=== PATIENT | female | born 1940 | race Caucasian/White ===

== ENCOUNTER → 2018-11-22 | Outpatient (CLI) | payer MEDICARE ==
[~2018-11-22] MED LIST: AEC81 PO; AMLO10TA7 PO; ANAG.5 PO; ATOR40TA71 PO; BRIM5DRO OU; CARB15DR OU; CARV12.511 PO; CLOP75TA32 PO; CYCL30DR; ESZO1TAB13 PO; HYPR10DR OU; LATA2.5D2 OU; LEVO50TA11 PO; SERT100T12 PO
== END | disposition home or self-care (01) ==
LOC: RAH 10:40
PROVIDERS: ATTEND Internal Medicine
DX: J11.1 Influenza due to unidentified influenza virus with other respiratory manifestations (principal); M47.815 Spondylosis without myelopathy or radiculopathy, thoracolumbar region; M85.88 Other specified disorders of bone density and structure, other site
CPT/HCPCS: 71046

== ENCOUNTER → 2019-01-20 | Outpatient (CLI) | payer MEDICARE | END | disposition home or self-care (01) | LOC: SHCH 08:25 | PROVIDERS: ATTEND Internal Medicine Cardiovascular Disease | DX: I08.0 Rheumatic disorders of both mitral and aortic valves (principal); I25.10 Atherosclerotic heart disease of native coronary artery without angina pectoris | CPT/HCPCS: 93306 ==

== ENCOUNTER 2020-05-06 21:03 | Inpatient (IN) | payer MEDICARE ==
[2020-05-06] MEDS ORDERED: LABETALOL 20 MG/4 ML DISP.SYRIN IV ONE (21:28)
[2020-05-06 21:44] LABS: BASOPHILS % (AUTO) 0.2 % (0.0-5.0); HEMATOCRIT 36.3 % (36-48); LYMPHOCYTES % (AUTO) 2.9 % (21.0-51.0); MEAN CORPUSCULAR HEMOGLOBIN 35.5 pg (27.0-33.0); MEAN CORPUSCULAR HGB CONC 36.6 g/dL (32.0-36.0); MEAN CORPUSCULAR VOLUME 96.8 fL (79-99); MONOCYTES % (AUTO) 3.6 % (3.0-13.0); NEUTROPHILS % (AUTO) 92.8 % (40.0-77.0); PLATELET COUNT (AUTO) 302 K/uL (130-400); RED BLOOD CELL COUNT(AUTO) 3.75 MIL/uL (4.00-5.50); RED CELL DISTRIBUTION WIDTH 14.8 % (11.0-15.5); WHITE BLOOD COUNT (AUTO) 13.3 K/uL (4.8-10.8)
[2020-05-06 21:57] LABS: INR 1.06 (0.85-1.15); PARTIAL THROMBOPLASTIN TIME 25.9 SEC (26.3-35.5); PROTHROMBIN TIME 11.4 SEC (9.6-11.6)
[2020-05-06 21:58] LABS: ALBUMIN 4.3 g/dL (3.5-5.0); BILIRUBIN,TOTAL 1.5 mg/dL (0.2-1.0); CREATININE 0.7 mg/dL (0.5-1.5)
[2020-05-06 22:05] LABS: POTASSIUM 2.8 mmol/L (3.5-5.1)
[2020-05-06] MEDS ORDERED: POTASSIUM BICARB/CIT AC 25 MEQ TABLET.EFF ONE (22:39)
[2020-05-06] MEDS ORDERED: IOHEXOL-350 75 ML VIAL IV ONE (23:11)
[2020-05-06] MEDS ORDERED: ONDANSETRON HCL 4 MG/2 ML VIAL ONE (23:40)
[2020-05-06 23:41] LABS: APPEARANCE,URINE Clear (CLEAR); BILIRUBIN,URINE Negative (NEGATIVE); COLOR,URINE Yellow (YELLOW); GLUCOSE, URINE (UA) 250 mg/dL (NEGATIVE); KETONES,URINE Trace mg/dL (NEGATIVE); LEUKOCYTE ESTERASE ,URINE Negative (NEGATIVE); NITRATE,URINE Negative (NEGATIVE); OCCULT BLOOD,URINE Small (NEGATIVE); PH,URINE >=9.0 (5.0-8.0); PROTEIN,URINE POS 1+ mg/dL (NEGATIVE); UROBILINOGEN,URINE 0.2 mg/dL (0.2-1.0)
[2020-05-06 23:48] LABS: AMPHET/METH SCREEN,URINE NEGATIVE (NEGATIVE); BARBITURATE SCREEN, URINE NEGATIVE (NEGATIVE); BENZODIAZEPINES SCREEN,URINE NEGATIVE (NEGATIVE); CANNABINOID SCREEN,URINE NEGATIVE (NEGATIVE); COCAINE SCREEN,URINE NEGATIVE (NEGATIVE); OPIATE SCREEN,URINE NEGATIVE (NEGATIVE); PHENCYCLIDINE SCREEN,URINE NEGATIVE (NEGATIVE)
[2020-05-06] MEDS ORDERED: SODIUM CHLORIDE 0.9% 1000ML 1,000 ML IV SCH (23:48)
[2020-05-06 23:52] LABS: BACTERIA,URINE Moderate /HPF (None Seen); MUCUS,URINE Few LPF (None Seen); RBC,URINE 0-1 /HPF (0-1); SQUAMOUS EPITHELIAL CELL,UR Rare /HPF (0-2)
[2020-05-07] VITALS (16 sets, daily range): BP systolic 118–147; BP diastolic 59–82
[2020-05-07] MEDS ORDERED: LACTULOSE 20 GM/30 ML UDCUP PO PRN
[2020-05-07] MEDS ORDERED: MAG HYDROX/AL HYDROX/SIMETH ES 30 ML SUSP UDCUP PO PRN
[2020-05-07] MEDS ORDERED: MAG HYDROX/AL HYDROX/SIMETH 30 ML, LIDOCAINE HCL 2% VISCOUS 30 ML, DIPHENHYDRAMINE HCL ... PO PRN ×3
[2020-05-07] MEDS ORDERED: DiphenhydrAMINE HCL 50 MG/ML VIAL IV PRN
[2020-05-07] MEDS ORDERED: LIDOCAINE HCL 2% VISCOUS 30 ML, MAG HYDROX/AL HYDROX/SIMETH 30 ML, BELLADONNA-PHENOBARB... PO PRN ×3
[2020-05-07] MEDS ORDERED: DIPHENHYDRAMINE HCL 25 MG CAPSULE PO PRN
[2020-05-07] MEDS ORDERED: NITROGLYCERIN 0.4 MG SL TAB SL PRN
[2020-05-07] MEDS ORDERED: MORPHINE SULFATE 4 MG/1ML SYG IV PRN
[2020-05-07] MEDS ORDERED: MORPHINE SULFATE 2 MG/ML 1ML SYG IV PRN
[2020-05-07] MEDS ORDERED: ZOLPIDEM TARTRATE 5 MG TAB PO PRN
[2020-05-07] MEDS ORDERED: ONDANSETRON HCL 4 MG/2 ML VIAL IV PRN
[2020-05-07] MEDS ORDERED: ACETAMINOPHEN 325 MG TAB PO PRN ×2
[2020-05-07] MEDS ORDERED: GUAIFENESIN-DM 200/20 MG 10 ML PO PRN
[2020-05-07] MEDS ORDERED: NICARDIPINE HCL 25 MG/10 ML ML IV ONE (02:13)
[2020-05-07] MEDS: NICARDIPINE HCL 25 MG in SODIUM CHLORIDE 0.9% 240 ML IV SCH ×2 (05:51→07:25)
[2020-05-07 06:59] LABS: CREATINE KINASE, TOTAL 224 U/L (21-232); MYOGLOBIN 129 ng/mL (10-92)
[2020-05-07 07:01] LABS: BASOPHILS % (AUTO) 0.1 % (0.0-5.0); HEMATOCRIT 34.7 % (36-48); LYMPHOCYTES % (AUTO) 3.1 % (21.0-51.0); MEAN CORPUSCULAR HEMOGLOBIN 35.8 pg (27.0-33.0); MEAN CORPUSCULAR HGB CONC 36.9 g/dL (32.0-36.0); MEAN CORPUSCULAR VOLUME 96.9 fL (79-99); MONOCYTES % (AUTO) 6.1 % (3.0-13.0); NEUTROPHILS % (AUTO) 90.3 % (40.0-77.0); PLATELET COUNT (AUTO) 283 K/uL (130-400); RED BLOOD CELL COUNT(AUTO) 3.58 MIL/uL (4.00-5.50); WHITE BLOOD COUNT (AUTO) 10.7 K/uL (4.8-10.8)
[2020-05-07] MEDS ORDERED: HYDRALAZINE HCL 20 MG/ML VIAL IV PRN (07:30)
[2020-05-07 07:31] LABS: ALBUMIN 3.5 g/dL (3.5-5.0); BILIRUBIN,TOTAL 1.2 mg/dL (0.2-1.0); CREATININE 0.9 mg/dL (0.5-1.5)
[2020-05-07 07:32] LABS: HEMOGLOBIN A1C 5.4 % (4.0-6.0)
[2020-05-07 07:45] LABS: POTASSIUM 2.9 mmol/L (3.5-5.1)
[2020-05-07 08:03] LABS: CREATINE KINASE, TOTAL 259 U/L (21-232); MYOGLOBIN 206 ng/mL (10-92); TROPONIN I < 0.04 ng/mL (0.00-0.06)
[2020-05-07] MEDS: ENOXAPARIN SODIUM 40 MG/0.4 ML SYRINGE SQ SCH (08:21)
[2020-05-07] MEDS: ASPIRIN 81 MG EC TAB PO SCH (08:21)
[2020-05-07] MEDS: FAMOTIDINE/PF 20 MG/2 ML VIAL IV SCH ×2 (08:21→20:12)
[2020-05-07] MEDS: POTASSIUM CHLORIDE 20MEQ/100ML 100 ML IV PRN ×3 (08:40→17:43)
[2020-05-07] MEDS: LIDOCAINE HCL-MPF 1% 2ML VIAL IV PRN ×2 (08:40→10:17)
[2020-05-07] MEDS ORDERED: MAGNESIUM 2GM PREMIX 50ML 50 ML IV PRN (09:15)
[2020-05-07 09:48] LABS: AMMONIA 17 umol/L (11-32); CHOLESTEROL 123 mg/dL (<200); HDL CHOLESTEROL 91 mg/dL (35-85); LDL DIRECT 49 mg/dL (0-99); TRIGLYCERIDES 35 mg/dL (30-200)
--- NOTE | 2020-05-07 10:10 | NUR ---
Dr Merritt at bedside, new recommendations given, okay to downgrade to PCCU
--- NOTE | 2020-05-07 10:10 | NUR ---
Per MEDINA John to hold skilled Physical Therapy Evaluation due to pending MRI. Addendum: 05/07/20 at 1011 by GERALD SOLIS PT PT Amended: Links added.
--- NOTE | 2020-05-07 11:00 | NUR ---
DYSPHAGIA EVDEBBIE COMPLETED. -S/S OF ASPIRATION. RECOMMEND REGULAR TEXTURE, THIN LIQUID DIET; PILLS WHOLE WITH LIQUIDS. Addendum: 05/07/20 at 1520 by CHAU TELLES, [facility] Amended: Links added.
--- NOTE | 2020-05-07 11:30 | NUR ---
COGNITIVE EVAL COMPLETE. COGNITIVE-LINGUISTIC ABILITIES WITHIN FUNCTIONAL LIMITS. EVALUATION: Pt AAOX3. Pt REQUESTS WANTS AND NEEDS INDEPENDENTLY. Pt INTELLIGIBLE AT 100% ACCURACY TO THE UNFAMILIAR LISTENER. Pt COMMUNICATING AT CONVERSATIONAL LEVEL WITH NO DEFICITS IDENTIFIED AT THIS TIME. Pt COMPLETED COGNITIVE-LINGUISTIC EVALUATION TARGETING: ORIENTATION, ATTENTION/CONCENTRATION, MEMORY (IMMEDIATE, SHORT-TERM AND LONG-TERM), PROBLEM SOLVING, LOGIC/REASONING/INFERENCE, THOUGHT ORGANIZATION, FUNCTIONAL MATH AND TELLING TIME. Pt ABLE TO COMPLETE TASKS WITH CORRECT AND TIMELY ANSWERS TO ALL SECTIONS. G-CODES SPOKEN LANGUAGE EXPRESSION: [id number] Addendum: 05/07/20 at 1524 by CHAU TELLES [facility] Amended: Links added.
--- NOTE | 2020-05-07 11:45 | NUR ---
Report given to MEDINA Locke, transferred to room [id number] via bed.
[2020-05-07 15:15] LABS: CREATININE 0.9 mg/dL (0.5-1.5); POTASSIUM 3.5 mmol/L (3.5-5.1); URIC ACID 1.2 mg/dL (2.6-7.2)
--- NOTE | 2020-05-07 16:39 | NUR ---
DC PLAN PATIENT LIVES ALONE. INDEPENDENT ABLE TO PERFORM ADL'S. PATIENT HAS NO SERVICES OR DME'S. FEELS SAFE TO RETURN HOME VIA PRIVATE VEHICLE. PHARM[facility]Y IS [facility] IN [place]. Addendum: 05/07/20 at 1641 by ISIDORO RODGERS RN CM Amended: Links added.
[2020-05-07 17:31] LABS: CREATININE 0.9 mg/dL (0.5-1.5); POTASSIUM 3.2 mmol/L (3.5-5.1)
[2020-05-07 17:34] LABS: TROPONIN I 0.28 ng/mL (0.00-0.06)
[2020-05-08 04:00] VITALS: BP 136/75
[2020-05-08 05:30] LABS: BASOPHILS % (AUTO) 0.5 % (0.0-5.0); EOSINOPHILS % (AUTO) 0.2 % (0.0-8.0); HEMATOCRIT 35.3 % (36-48); LYMPHOCYTES % (AUTO) 9.8 % (21.0-51.0); MEAN CORPUSCULAR HEMOGLOBIN 35.1 pg (27.0-33.0); MEAN CORPUSCULAR HGB CONC 34.8 g/dL (32.0-36.0); MEAN CORPUSCULAR VOLUME 100.9 fL (79-99); MONOCYTES % (AUTO) 12.2 % (3.0-13.0); NEUTROPHILS % (AUTO) 76.6 % (40.0-77.0); PLATELET COUNT (AUTO) 279 K/uL (130-400); WHITE BLOOD COUNT (AUTO) 8.3 K/uL (4.8-10.8)
[2020-05-08 05:49] LABS: ALBUMIN 3.2 g/dL (3.5-5.0); BILIRUBIN,TOTAL 0.7 mg/dL (0.2-1.0); CREATININE 0.9 mg/dL (0.5-1.5); POTASSIUM 3.8 mmol/L (3.5-5.1); TOTAL PROTEIN, SERUM 6.5 g/dL (6.0-8.3)
[2020-05-08] MEDS ORDERED: LEVOTHYROXINE 50 MCG TABLET PO SCH (06:30)
[2020-05-08 08:00] VITALS: BP 137/77
[2020-05-08] MEDS: ASPIRIN 81 MG EC TAB PO SCH (09:00)
[2020-05-08] MEDS ORDERED: FOLIC ACID/VITAMIN B COMP W-C 1 CAP TAB PO SCH (09:00)
[2020-05-08] MEDS: ENOXAPARIN SODIUM 40 MG/0.4 ML SYRINGE SQ SCH (09:00)
[2020-05-08] MEDS: FAMOTIDINE/PF 20 MG/2 ML VIAL IV SCH (09:28)
== END 2020-05-08 13:20 | disposition home or self-care (01) | DRG 640 ==
LOC: EDH 21:03 → EDHIP 23:48 → DAHIP 05-07 02:15 → 4CH 05-07 12:02
PROVIDERS: ADMIT Internal Medicine; ATTEND Internal Medicine
DX: E87.1 Hypo-osmolality and hyponatremia (principal); G93.41 Metabolic encephalopathy; I16.0 Hypertensive urgency; E87.6 Hypokalemia; F32.9 Major depressive disorder, single episode, unspecified; R29.705 NIHSS score 5; I25.10 Atherosclerotic heart disease of native coronary artery without angina pectoris; R40.2420 Glasgow coma scale score 9-12, unspecified time; E03.9 Hypothyroidism, unspecified; E87.8 Other disorders of electrolyte and fluid balance, not elsewhere classified; I10 Essential (primary) hypertension; K52.9 Noninfective gastroenteritis and colitis, unspecified; Z85.528 Personal history of other malignant neoplasm of kidney; Z95.5 Presence of coronary angioplasty implant and graft; Z85.6 Personal history of leukemia; I25.2 Old myocardial infarction; Z90.710 Acquired absence of both cervix and uterus; Z90.49 Acquired absence of other specified parts of digestive tract; Z88.0 Allergy status to penicillin; Z88.2 Allergy status to sulfonamides; Z88.7 Allergy status to serum and vaccine; Z82.0 Family history of epilepsy and other diseases of the nervous system; Z82.3 Family history of stroke; Z82.49 Family history of ischemic heart disease and other diseases of the circulatory system
CPT/HCPCS: 36415; 70450; 70496; 70498; 70544; 70547; 70551; 71045; 80048; 80053; 80061; 80305; 81001; 82140; 82550; 82607; 82948; 83036; 83721; 83735; 83874; 83930; 83935; 84300; 84443; 84484; 84550; 85025; 85610; 85651; 85730; 87077; 87088; 87186; 92522; 92610; 93005; 93306; 93356; 99291; G0378; J1650; J2405; J3475; J3480; J3490; J7050; Q9967

== ENCOUNTER 2020-09-10 14:29 | Emergency (ER) | payer MEDICARE ==
[~2020-09-10 14:29] MED LIST changes: +AMLO-258 PO; -AMLO10TA7 PO; +LATA2.5D14 OU; -LATA2.5D2 OU; -SERT100T12 PO
[2020-09-10 15:26] LABS: BASOPHILS % (AUTO) 0.7 % (0.0-5.0); EOSINOPHILS % (AUTO) 0.7 % (0.0-8.0); HEMATOCRIT 37.3 % (36-48); MEAN CORPUSCULAR HEMOGLOBIN 37.8 pg (27.0-33.0); MEAN CORPUSCULAR HGB CONC 34.9 g/dL (32.0-36.0); MEAN CORPUSCULAR VOLUME 108.4 fL (79-99); MONOCYTES % (AUTO) 8.6 % (3.0-13.0); NEUTROPHILS % (AUTO) 79.6 % (40.0-77.0); PLATELET COUNT (AUTO) 355 K/uL (130-400); RED BLOOD CELL COUNT(AUTO) 3.44 MIL/uL (4.00-5.50); RED CELL DISTRIBUTION WIDTH 12.4 % (11.0-15.5); WHITE BLOOD COUNT (AUTO) 5.5 K/uL (4.8-10.8)
[2020-09-10 15:53] LABS: RAPID GROUP A STREP NEGATIVE (NEGATIVE)
[2020-09-10 15:56] LABS: CREATININE 0.9 mg/dL (0.5-1.5); INR 1.28 (0.85-1.15); POTASSIUM 3.1 mmol/L (3.5-5.1); PROTHROMBIN TIME 13.4 SEC (9.6-11.6)
[2020-09-10 15:57] LABS: PARTIAL THROMBOPLASTIN TIME 26.2 SEC (26.3-35.5)
[2020-09-10 16:02] LABS: ALBUMIN 3.8 g/dL (3.5-5.0); BILIRUBIN,TOTAL 0.5 mg/dL (0.2-1.0); TOTAL PROTEIN, SERUM 7.5 g/dL (6.0-8.3)
[2020-09-10 16:13] LABS: APPEARANCE,URINE Clear (CLEAR); BILIRUBIN,URINE Negative (NEGATIVE); COLOR,URINE Yellow (YELLOW); GLUCOSE, URINE (UA) Negative (NEGATIVE); KETONES,URINE Negative (NEGATIVE); LEUKOCYTE ESTERASE ,URINE Negative (NEGATIVE); NITRATE,URINE Negative (NEGATIVE); OCCULT BLOOD,URINE Negative (NEGATIVE); PH,URINE 6.5 (5.0-8.0); PROTEIN,URINE Negative (NEGATIVE); UROBILINOGEN,URINE 0.2 mg/dL (0.2-1.0)
[2020-09-10] MEDS ORDERED: POTASSIUM BICARB/CIT AC 25 MEQ TABLET.EFF ONE (16:44)
== END 2020-09-10 17:19 | disposition home or self-care (01) ==
LOC: EDH 14:29
DX: R03.0 Elevated blood-pressure reading, without diagnosis of hypertension (principal); R42 Dizziness and giddiness; E87.6 Hypokalemia; Z20.828 Contact with and (suspected) exposure to other viral communicable diseases; I25.2 Old myocardial infarction; Z90.49 Acquired absence of other specified parts of digestive tract; Z90.710 Acquired absence of both cervix and uterus; Z88.0 Allergy status to penicillin; Z88.7 Allergy status to serum and vaccine; Z88.3 Allergy status to other anti-infective agents; Z88.2 Allergy status to sulfonamides
CPT/HCPCS: 36415; 71045; 80053; 81003; 82550; 85025; 85610; 85730; 87040; 87426; 87804; 87880; 93005

== ENCOUNTER → 2021-04-19 | Outpatient (CLI) | payer MEDICARE | END | disposition home or self-care (01) | LOC: RAH 13:54 | PROVIDERS: ATTEND Internal Medicine | DX: K59.00 Constipation, unspecified (principal) | CPT/HCPCS: 74021 ==

== ENCOUNTER → 2021-06-17 | Outpatient (CLI) | payer MEDICARE ==
[~2021-06-17] MED LIST changes: +ASCO100031 PO; +ATOR40TA69 PO; +CARV3.12 PO; +CLOP75TA14 PO; +COMB5OS OD; +CYCL30DR OP; +ESZO2TAB31 PO; +HYDR500C2 PO; +LEVE-43 PO; +LEVO50CA4 PO; +PANT20TA PO; +PSYL3.4P5 PO; +SERT-439 PO; +VITAD50000 PO; +VYZULTA
== END | disposition home or self-care (01) ==
LOC: RAH 09:03
PROVIDERS: ATTEND Internal Medicine Cardiovascular Disease
DX: K55.059 Acute (reversible) ischemia of intestine, part and extent unspecified (principal); I77.4 Celiac artery compression syndrome
CPT/HCPCS: 93975

== ENCOUNTER 2021-06-20 21:42 | Inpatient (IN) | payer MEDICARE ==
[~2021-06-20] VITALS: Ht 167.6 cm; Wt 58.4 kg
[~2021-06-20 21:42] MED LIST changes: -ASCO100031 PO; -ATOR40TA69 PO; -CARV3.12 PO; -CLOP75TA14 PO; -COMB5OS OD; -CYCL30DR OP; -ESZO2TAB31 PO; -HYDR500C2 PO; -LEVE-43 PO; -LEVO50CA4 PO; -PANT20TA PO; -PSYL3.4P5 PO; -SERT-439 PO; -VITAD50000 PO; -VYZULTA
[2021-06-20] MEDS ORDERED: 0.9%NACL 1000ML 1,000 ML IV ONE (22:00)
[2021-06-20 22:13] LABS: BASOPHILS % (AUTO) 0.7 % (0.0-5.0); EOSINOPHILS % (AUTO) 1.4 % (0.0-8.0); HEMATOCRIT 34.3 % (36-48); LYMPHOCYTES % (AUTO) 10.6 % (21.0-51.0); MEAN CORPUSCULAR HEMOGLOBIN 37.1 pg (27.0-33.0); MEAN CORPUSCULAR HGB CONC 35.6 g/dL (32.0-36.0); MEAN CORPUSCULAR VOLUME 104.3 fL (79-99); MONOCYTES % (AUTO) 7.5 % (3.0-13.0); NEUTROPHILS % (AUTO) 79.3 % (40.0-77.0); PLATELET COUNT (AUTO) 326 K/uL (130-400); RED BLOOD CELL COUNT(AUTO) 3.29 MIL/uL (4.00-5.50); RED CELL DISTRIBUTION WIDTH 11.8 % (11.0-15.5); WHITE BLOOD COUNT (AUTO) 8.3 K/uL (4.8-10.8)
[2021-06-20] MEDS ORDERED: HYDR500C2 PO ×2 (22:20→22:24)
[2021-06-20] MEDS ORDERED: SERT-439 PO (22:21)
[2021-06-20 22:31] LABS: ALBUMIN 3.9 g/dL (3.5-5.0); BILIRUBIN,TOTAL 1.4 mg/dL (0.2-1.0); CREATININE 0.7 mg/dL (0.5-1.5); TOTAL PROTEIN, SERUM 7.6 g/dL (6.0-8.3)
[2021-06-20 22:39] LABS: POTASSIUM 2.7 mmol/L (3.5-5.1)
[2021-06-20] MEDS ORDERED: MORPHINE 2 MG SYG IVP ONE (23:00)
[2021-06-20] MEDS ORDERED: ONDANSETRON 4MG INJ IVP ONE (23:00)
[2021-06-20] MEDS ORDERED: ONDANSETRON 4MG INJ ONE (23:20)
[2021-06-20] MEDS ORDERED: POTASSIUM CHLORIDE 20MEQ/100ML 100 ML IV ONE (23:21)
[2021-06-20] MEDS ORDERED: MORPHINE 2 MG SYG ONE (23:21)
[2021-06-20] MEDS ORDERED: LIDOCAINE HCL-MPF 1% 2ML VIAL ONE (23:22)
[2021-06-20] MEDS ORDERED: LORAZEPAM 2 MG/ML 1 ML VIAL ONE (23:24)
[2021-06-20] MEDS ORDERED: ONDANSETRON 4MG INJ IV PRN (23:30)
[2021-06-20] MEDS ORDERED: POTASSIUM CHLORIDE 10% ELIXIR 20 MEQ/15 ML UDCUP PO PRN (23:30)
[2021-06-20] MEDS ORDERED: 0.9%NACL 1000ML 1,000 ML IV SCH (23:30)
[2021-06-20] MEDS ORDERED: KCL 20 MEQ ERTAB PO PRN (23:30)
[2021-06-20] MEDS ORDERED: POTASSIUM CHLORIDE 20MEQ/100ML 100 ML IV PRN (23:30)
[2021-06-20] MEDS ORDERED: LEVETIRACETAM 500 MG/5 ML SD VIAL IV ONE (23:31)
[2021-06-20] MEDS ORDERED: 0.9%NACL 100ML 100 ML ONE (23:31)
[2021-06-20] MEDS: POTASSIUM CHLORIDE 20 MEQ/100 ML BAG IV SCH (23:46)
[2021-06-21 00:06] LABS: APPEARANCE,URINE Clear (CLEAR); BILIRUBIN,URINE Negative (NEGATIVE); COLOR,URINE Yellow (YELLOW); GLUCOSE, URINE (UA) TRACE mg/dL (NEGATIVE); KETONES,URINE Trace mg/dL (NEGATIVE); LEUKOCYTE ESTERASE ,URINE Negative (NEGATIVE); NITRATE,URINE Negative (NEGATIVE); OCCULT BLOOD,URINE Trace (NEGATIVE); PH,URINE 7.5 (5.0-8.0); PROTEIN,URINE POS 1+ mg/dL (NEGATIVE); UROBILINOGEN,URINE 0.2 mg/dL (0.2-1.0)
[2021-06-21 00:21] LABS: BACTERIA,URINE None Seen /HPF (None Seen); MUCUS,URINE Rare LPF (None Seen); RBC,URINE None Seen /HPF (0-1); SQUAMOUS EPITHELIAL CELL,UR Few /HPF (0-2); WBC,URINE None Seen /HPF (0-1)
[2021-06-21] MEDS ORDERED: LORAZEPAM 2 MG/ML 1 ML VIAL IVP PRN (02:00)
[2021-06-21] MEDS ORDERED: HYDRALAZINE 20MG/ML VIAL IV PRN (02:30)
[2021-06-21] MEDS: LIDOCAINE HCL-MPF 1% 2ML VIAL IV PRN (02:48)
[2021-06-21] MEDS: POTASSIUM CHLORIDE 20 MEQ/100 ML BAG IV SCH (02:48)
[2021-06-21] MEDS ORDERED: CARV3.12 PO (05:09)
[2021-06-21] MEDS ORDERED: ATOR40TA69 PO (05:09)
[2021-06-21] MEDS ORDERED: ASCO100031 PO (05:09)
[2021-06-21] MEDS ORDERED: COMB5OS OD (05:09)
[2021-06-21] MEDS ORDERED: LEVO50CA4 PO (05:09)
[2021-06-21] MEDS ORDERED: SERT-439 PO (05:09)
[2021-06-21] MEDS ORDERED: ESZO2TAB31 PO (05:09)
[2021-06-21] MEDS ORDERED: PSYL3.4P5 PO (05:09)
[2021-06-21] MEDS ORDERED: CYCL30DR OP (05:09)
[2021-06-21] MEDS ORDERED: VITAD50000 PO (05:09)
[2021-06-21] MEDS ORDERED: CLOP75TA14 PO (05:09)
[2021-06-21] MEDS ORDERED: HYDR500C2 PO ×2 (05:09)
[2021-06-21] MEDS ORDERED: VYZULTA (05:09)
[2021-06-21 06:32] LABS: BASOPHILS % (AUTO) 0.2 % (0.0-5.0); HEMATOCRIT 35.3 % (36-48); LYMPHOCYTES % (AUTO) 2.3 % (21.0-51.0); MEAN CORPUSCULAR HEMOGLOBIN 37.1 pg (27.0-33.0); MEAN CORPUSCULAR HGB CONC 35.4 g/dL (32.0-36.0); MEAN CORPUSCULAR VOLUME 104.7 fL (79-99); MONOCYTES % (AUTO) 5.4 % (3.0-13.0); NEUTROPHILS % (AUTO) 91.7 % (40.0-77.0); PLATELET COUNT (AUTO) 298 K/uL (130-400); RED BLOOD CELL COUNT(AUTO) 3.37 MIL/uL (4.00-5.50); RED CELL DISTRIBUTION WIDTH 11.5 % (11.0-15.5); WHITE BLOOD COUNT (AUTO) 12.7 K/uL (4.8-10.8)
[2021-06-21 07:01] LABS: CREATININE 0.7 mg/dL (0.5-1.5); MAGNESIUM 2.1 mg/dL (1.80-2.40); PHOSPHORUS 2.7 mg/dL (2.5-4.9); POTASSIUM 3.6 mmol/L (3.5-5.1)
[2021-06-21] MEDS ORDERED: LACTATED RINGERS 1000ML 1,000 ML IV SCH (08:00)
[2021-06-21] MEDS: ENOXAPARIN SODIUM 30 MG/0.3 ML SQ SCH (09:00)
[2021-06-21] MEDS ORDERED: FAMOTIDINE 20MG TAB PO SCH (09:00)
[2021-06-21] MEDS: FAMOTIDINE 20MG VIAL IV SCH (09:27)
[2021-06-21 10:34] LABS: INR 1.18 (0.85-1.15); PROTHROMBIN TIME 12.7 SEC (9.6-11.6)
[2021-06-21 10:36] LABS: PARTIAL THROMBOPLASTIN TIME 24.5 SEC (26.3-35.5)
[2021-06-21] MEDS ORDERED: COMPOUND IV MISC 1 EACH IVSOLN MISC PRN (11:00)
[2021-06-21 11:14] LABS: CREATININE 0.7 mg/dL (0.5-1.5); POTASSIUM 3.1 mmol/L (3.5-5.1)
[2021-06-21] MEDS ORDERED: LEVETIRACETAM 500 MG/5 ML SD VIAL IV ONE (11:28)
[2021-06-21] MEDS ORDERED: 0.9%NACL 100ML 100 ML ONE (11:29)
[2021-06-21] MEDS: LEVETIRACETAM 500 MG in 0.9%NACL 100ML 100 ML IV SCH ×2 (11:36→22:56)
[2021-06-21 15:22] LABS: CREATININE 0.6 mg/dL (0.5-1.5); POTASSIUM 3.6 mmol/L (3.5-5.1)
[2021-06-21] MEDS ORDERED: IPRATROPIUM/ALBUTEROL SULFATE 3 ML SOLUTION IH ONE (16:53)
[2021-06-21] MEDS ORDERED: SODIUM CHLORIDE 3% 500 ML ONE (17:06)
[2021-06-21] MEDS ORDERED: SODIUM CHLORIDE 3% 500 ML IV SCH (17:30)
[2021-06-21] MEDS ORDERED: ACETAMINOPHEN 650 MG SUPPOSITORY RC ONE (17:51)
[2021-06-21] MEDS ORDERED: ACETAMINOPHEN 650 MG SUPPOSITORY RC PRN (18:30)
[2021-06-21 18:55] LABS: APPEARANCE,URINE Clear (CLEAR); BILIRUBIN,URINE Negative (NEGATIVE); COLOR,URINE Yellow (YELLOW); GLUCOSE, URINE (UA) Negative (NEGATIVE); KETONES,URINE Negative (NEGATIVE); LEUKOCYTE ESTERASE ,URINE Moderate (NEGATIVE); NITRATE,URINE Negative (NEGATIVE); OCCULT BLOOD,URINE Moderate (NEGATIVE); PH,URINE 6.5 (5.0-8.0); PROTEIN,URINE Negative (NEGATIVE); UROBILINOGEN,URINE 0.2 mg/dL (0.2-1.0)
[2021-06-21 18:58] LABS: CREATININE 0.7 mg/dL (0.5-1.5); POTASSIUM 3.2 mmol/L (3.5-5.1)
[2021-06-21] MEDS ORDERED: PHARMACY COMMUNICATION MISC SCH (19:00)
[2021-06-21 19:07] LABS: BACTERIA,URINE Rare /HPF (None Seen); SQUAMOUS EPITHELIAL CELL,UR Rare /HPF (0-2)
[2021-06-21] MEDS: LEVOFLOXACIN 500 MG/D5W 100 ML 100 ML IV SCH (20:01)
[2021-06-21] MEDS: BRIMONIDINE TARTRATE 0.2% 5 ML BOTTLE OD SCH (21:00)
[2021-06-21] MEDS: RESTASIS OP SCH (21:00)
[2021-06-21] MEDS: TIMOLOL MALEATE 0.5% 5 ML BOTTLE OD SCH (21:01)
[2021-06-21] MEDS: METRONIDAZOLE 500MG/100ML BAG 100 ML IVPB SCH (21:52)
[2021-06-21 22:04] LABS: CREATININE 0.8 mg/dL (0.5-1.5); POTASSIUM 3.3 mmol/L (3.5-5.1)
[2021-06-22] VITALS (15 sets, daily range): BP systolic 125–190; BP diastolic 59–106
[2021-06-22 02:21] LABS: CHLORIDE,URINE RANDOM 30 mmol/L (110-250); POTASSIUM,URINE RANDOM 12 mmol/L (25-125); SODIUM,URINE RANDOM < 14 mmol/l (40-220)
[2021-06-22 02:23] LABS: CREATININE 0.9 mg/dL (0.5-1.5); POTASSIUM 3.7 mmol/L (3.5-5.1)
[2021-06-22 04:33] LABS: HEMATOCRIT 31.3 % (36-48); MEAN CORPUSCULAR HEMOGLOBIN 37.1 pg (27.0-33.0); MEAN CORPUSCULAR HGB CONC 34.8 g/dL (32.0-36.0); MEAN CORPUSCULAR VOLUME 106.5 fL (79-99); PLATELET COUNT (AUTO) 275 K/uL (130-400); RED BLOOD CELL COUNT(AUTO) 2.94 MIL/uL (4.00-5.50); RED CELL DISTRIBUTION WIDTH 12.5 % (11.0-15.5); WHITE BLOOD COUNT (AUTO) 8.2 K/uL (4.8-10.8)
[2021-06-22 04:40] LABS: CREATININE 0.8 mg/dL (0.5-1.5); POTASSIUM 3.7 mmol/L (3.5-5.1)
[2021-06-22 04:54] LABS: THYROID STIMULATING HORMONE 3.39 uIU/mL (0.36-3.74)
[2021-06-22 05:23] LABS: BAND NEUTROPHILS % (MANUAL) 1 % (0-2); LYMPHOCYTES % (MANUAL) 8 % (22-44); MONOCYTES % (MANUAL) 5 % (2-9); REACTIVE LYMPHOCYTES 1 % (0-0); SEGMENTED NEUTROPHILS % 85 % (40-70)
[2021-06-22 05:24] LABS: MAN.DIFF COMMENT-IMPRESSION MANUAL DIFFERENTIAL; PLATELET MORPHOLOGY COMMENT ADEQUATE
[2021-06-22] MEDS: METRONIDAZOLE 500MG/100ML BAG 100 ML IVPB SCH ×3 (05:44→21:42)
[2021-06-22 06:43] LABS: CREATININE 0.8 mg/dL (0.5-1.5); POTASSIUM 3.5 mmol/L (3.5-5.1)
[2021-06-22] MEDS: Vitamin B Complex/Vit C/Folic Acid PO SCH (08:55)
[2021-06-22] MEDS: BRIMONIDINE TARTRATE 0.2% 5 ML BOTTLE OD SCH ×2 (09:00→20:21)
[2021-06-22] MEDS: TIMOLOL MALEATE 0.5% 5 ML BOTTLE OD SCH ×2 (09:00→20:21)
[2021-06-22] MEDS: FAMOTIDINE 20MG VIAL IV SCH (09:01)
[2021-06-22] MEDS: ENOXAPARIN SODIUM 30 MG/0.3 ML SQ SCH (09:01)
[2021-06-22] MEDS ORDERED: HYDRALAZINE 20MG/ML VIAL IV PRN (09:30)
[2021-06-22] MEDS: LEVETIRACETAM 500 MG in 0.9%NACL 100ML 100 ML IV SCH ×2 (11:25→23:00)
[2021-06-22 12:12] LABS: CREATININE 0.8 mg/dL (0.5-1.5); POTASSIUM 3.1 mmol/L (3.5-5.1)
[2021-06-22] MEDS: RESTASIS OP SCH ×2 (12:19→21:01)
[2021-06-22] MEDS ORDERED: POTASSIUM CHLORIDE 10% ELIXIR 20 MEQ/15 ML UDCUP PO ONE (14:00)
[2021-06-22] MEDS ORDERED: DEXTROSE 5%-WATER 1,000 ML IV SCH (14:30)
[2021-06-22] MEDS ORDERED: DESMOPRESSIN ACETATE 4 MCG/ML 1ML AMP SQ SCH (15:30)
[2021-06-22] MEDS ORDERED: PHARMACY COMMUNICATION MISC SCH (15:30)
[2021-06-22] MEDS: THIAMINE HCL 100 MG TABLET PO SCH (15:44)
[2021-06-22] MEDS: FOLIC ACID 1 MG TABLET PO SCH (15:44)
[2021-06-22 18:10] LABS: CREATININE 0.6 mg/dL (0.5-1.5); POTASSIUM 3.8 mmol/L (3.5-5.1)
[2021-06-22] MEDS: LEVOFLOXACIN 500 MG/D5W 100 ML 100 ML IV SCH (20:21)
[2021-06-22] MEDS: CARVEDILOL 3.125 MG TABLET PO SCH (20:21)
[2021-06-22] MEDS: ATORVASTATIN 40 MG TABLET PO SCH (20:22)
[2021-06-22] MEDS ORDERED: ESZOPICLONE 2 MG PO SCH ×2 (21:00)
[2021-06-22] MEDS ORDERED: LORAZEPAM 2 MG/ML 1 ML VIAL IVP ONE (21:30)
[2021-06-22] MEDS: POTASSIUM CHLORIDE 20 MEQ/100 ML BAG IV SCH (23:00)
[2021-06-22] MEDS ORDERED: DEXMEDETOMIDINE 400MCG/NS100ML IV ONE (23:12)
[2021-06-22] MEDS ORDERED: DEXMEDETOMIDINE HCL 200 MCG in 0.9%NACL 50ML 50 ML IV SCH (23:30)
[2021-06-22 23:37] LABS: MAGNESIUM 2.3 mg/dL (1.80-2.40); PHOSPHORUS 1.6 mg/dL (2.5-4.9); POTASSIUM 4.3 mmol/L (3.5-5.1)
[2021-06-23] VITALS (29 sets, daily range): BP systolic 98–166; BP diastolic 48–89
[2021-06-23] MEDS ORDERED: DEXMEDETOMIDINE 400MCG/NS100ML IV ONE (05:36)
[2021-06-23 06:10] LABS: BASOPHILS % (AUTO) 0.3 % (0.0-5.0); EOSINOPHILS % (AUTO) 0.2 % (0.0-8.0); HEMATOCRIT 28.4 % (36-48); LYMPHOCYTES % (AUTO) 5.1 % (21.0-51.0); MEAN CORPUSCULAR HEMOGLOBIN 37.7 pg (27.0-33.0); MEAN CORPUSCULAR HGB CONC 34.5 g/dL (32.0-36.0); MEAN CORPUSCULAR VOLUME 109.2 fL (79-99); MONOCYTES % (AUTO) 9.3 % (3.0-13.0); NEUTROPHILS % (AUTO) 84.6 % (40.0-77.0); PLATELET COUNT (AUTO) 220 K/uL (130-400); RED CELL DISTRIBUTION WIDTH 12.3 % (11.0-15.5); WHITE BLOOD COUNT (AUTO) 8.6 K/uL (4.8-10.8)
[2021-06-23 06:23] LABS: CREATININE 0.6 mg/dL (0.5-1.5); MAGNESIUM 2.2 mg/dL (1.80-2.40); PHOSPHORUS 2.1 mg/dL (2.5-4.9); POTASSIUM 3.4 mmol/L (3.5-5.1)
[2021-06-23] MEDS: METRONIDAZOLE 500MG/100ML BAG 100 ML IVPB SCH (06:24)
[2021-06-23] MEDS: LEVOTHYROXINE 50 MCG TABLET PO SCH (06:24)
[2021-06-23] MEDS ORDERED: POTASSIUM CHLORIDE 10MEQ/100ML 100 ML IV ONE (06:45)
[2021-06-23] MEDS: POTASSIUM CHLORIDE 20MEQ/100ML 100 ML IV PRN ×2 (07:04→18:12)
[2021-06-23] MEDS ORDERED: NON-FORMULARY MEDICATION 1 EACH (Levothyroxine Sodium (Levothyroxine) 50 MCG) PO SCH (07:30)
[2021-06-23] MEDS: FOLIC ACID 1 MG TABLET PO SCH (08:47)
[2021-06-23] MEDS: CARVEDILOL 3.125 MG TABLET PO SCH ×2 (08:47→20:23)
[2021-06-23] MEDS: Vitamin B Complex/Vit C/Folic Acid PO SCH (08:47)
[2021-06-23] MEDS: THIAMINE HCL 100 MG TABLET PO SCH (08:47)
[2021-06-23] MEDS: FAMOTIDINE 20MG VIAL IV SCH (08:48)
[2021-06-23] MEDS: CLOPIDOGREL 75MG TAB PO SCH (08:48)
[2021-06-23] MEDS: ASCORBIC ACID 500 MG TAB PO SCH (08:48)
[2021-06-23] MEDS: BRIMONIDINE TARTRATE 0.2% 5 ML BOTTLE OD SCH ×2 (08:49→20:23)
[2021-06-23] MEDS: ENOXAPARIN SODIUM 30 MG/0.3 ML SQ SCH (08:49)
[2021-06-23] MEDS: TIMOLOL MALEATE 0.5% 5 ML BOTTLE OD SCH ×2 (08:49→20:24)
[2021-06-23] MEDS: RESTASIS OP SCH ×2 (08:49→20:31)
[2021-06-23] MEDS: HYDROXYUREA 500 MG CAP PO SCH (08:56)
[2021-06-23] MEDS ORDERED: NON-FORMULARY MEDICATION 1 EACH (Ascorbic Acid (Vitamin C) 1,000 MG) PO SCH (09:00)
[2021-06-23] MEDS: LEVETIRACETAM 500 MG in 0.9%NACL 100ML 100 ML IV SCH ×2 (10:32→23:09)
[2021-06-23] MEDS: VITAMIN D3 PO SCH (12:00)
[2021-06-23] MEDS ORDERED: NON-FORMULARY MEDICATION 1 EACH (Cholecalciferol (Vitamin D3) 50,000 UNITS) PO SCH (12:00)
[2021-06-23 12:05] LABS: CREATININE 0.5 mg/dL (0.5-1.5); POTASSIUM 3.7 mmol/L (3.5-5.1)
[2021-06-23 17:57] LABS: CREATININE 0.5 mg/dL (0.5-1.5); POTASSIUM 3.4 mmol/L (3.5-5.1)
[2021-06-23] MEDS: LIDOCAINE HCL-MPF 1% 2ML VIAL IV PRN (18:13)
[2021-06-23] MEDS: LEVOFLOXACIN 500 MG/D5W 100 ML 100 ML IV SCH (19:30)
[2021-06-23] MEDS: ATORVASTATIN 40 MG TABLET PO SCH (20:22)
[2021-06-23] MEDS: POTASSIUM CHLORIDE 20 MEQ/100 ML BAG IV SCH (23:00)
[2021-06-24] VITALS (14 sets, daily range): BP systolic 113–163; BP diastolic 59–88
[2021-06-24 01:02] LABS: CREATININE 0.7 mg/dL (0.5-1.5); POTASSIUM 3.6 mmol/L (3.5-5.1)
[2021-06-24 03:50] LABS: BASOPHILS % (AUTO) 0.5 % (0.0-5.0); EOSINOPHILS % (AUTO) 0.8 % (0.0-8.0); HEMATOCRIT 30.7 % (36-48); LYMPHOCYTES % (AUTO) 8.3 % (21.0-51.0); MEAN CORPUSCULAR HEMOGLOBIN 38.1 pg (27.0-33.0); MEAN CORPUSCULAR HGB CONC 35.5 g/dL (32.0-36.0); MEAN CORPUSCULAR VOLUME 107.3 fL (79-99); MONOCYTES % (AUTO) 9.3 % (3.0-13.0); NEUTROPHILS % (AUTO) 80.8 % (40.0-77.0); PLATELET COUNT (AUTO) 109 K/uL (130-400); RED BLOOD CELL COUNT(AUTO) 2.86 MIL/uL (4.00-5.50); RED CELL DISTRIBUTION WIDTH 12.1 % (11.0-15.5); WHITE BLOOD COUNT (AUTO) 6.1 K/uL (4.8-10.8)
[2021-06-24 03:53] LABS: CREATININE 0.6 mg/dL (0.5-1.5); MAGNESIUM 1.9 mg/dL (1.80-2.40); POTASSIUM 4.2 mmol/L (3.5-5.1); URIC ACID 2.1 mg/dL (2.6-7.2)
[2021-06-24] MEDS: LEVOTHYROXINE 50 MCG TABLET PO SCH (06:41)
[2021-06-24] MEDS: THIAMINE HCL 100 MG TABLET PO SCH (07:52)
[2021-06-24] MEDS: ASCORBIC ACID 500 MG TAB PO SCH (07:52)
[2021-06-24] MEDS: CARVEDILOL 3.125 MG TABLET PO SCH ×2 (07:52→20:49)
[2021-06-24] MEDS: Vitamin B Complex/Vit C/Folic Acid PO SCH (07:52)
[2021-06-24] MEDS: FOLIC ACID 1 MG TABLET PO SCH (07:52)
[2021-06-24] MEDS: FAMOTIDINE 20MG VIAL IV SCH (07:52)
[2021-06-24] MEDS: CLOPIDOGREL 75MG TAB PO SCH (07:53)
[2021-06-24] MEDS: ENOXAPARIN SODIUM 30 MG/0.3 ML SQ SCH (07:53)
[2021-06-24] MEDS: LEVETIRACETAM 500 MG in 0.9%NACL 100ML 100 ML IV SCH ×2 (07:57→22:55)
[2021-06-24] MEDS: BRIMONIDINE TARTRATE 0.2% 5 ML BOTTLE OD SCH ×2 (09:01→20:49)
[2021-06-24] MEDS: HYDROXYUREA 500 MG CAP PO SCH (09:01)
[2021-06-24] MEDS: TIMOLOL MALEATE 0.5% 5 ML BOTTLE OD SCH ×2 (09:01→20:49)
[2021-06-24] MEDS: RESTASIS OP SCH ×2 (09:01→20:49)
[2021-06-24] MEDS: VITAMIN D3 PO SCH (12:00)
[2021-06-24 12:21] LABS: CREATININE 0.8 mg/dL (0.5-1.5); POTASSIUM 3.7 mmol/L (3.5-5.1)
[2021-06-24 18:07] LABS: CREATININE 1.1 mg/dL (0.5-1.5); POTASSIUM 3.5 mmol/L (3.5-5.1)
[2021-06-24] MEDS: LEVOFLOXACIN 500 MG/D5W 100 ML 100 ML IV SCH (20:49)
[2021-06-24] MEDS: ATORVASTATIN 40 MG TABLET PO SCH (20:49)
[2021-06-24] MEDS: POTASSIUM CHLORIDE 20 MEQ/100 ML BAG IV SCH (22:56)
[2021-06-25] VITALS (9 sets, daily range): BP systolic 139–165; BP diastolic 78–89
[2021-06-25 04:17] LABS: BASOPHILS % (AUTO) 0.9 % (0.0-5.0); EOSINOPHILS % (AUTO) 0.9 % (0.0-8.0); HEMATOCRIT 30.4 % (36-48); LYMPHOCYTES % (AUTO) 11.6 % (21.0-51.0); MEAN CORPUSCULAR HEMOGLOBIN 37.4 pg (27.0-33.0); MEAN CORPUSCULAR HGB CONC 34.2 g/dL (32.0-36.0); MEAN CORPUSCULAR VOLUME 109.4 fL (79-99); MONOCYTES % (AUTO) 14.2 % (3.0-13.0); NEUTROPHILS % (AUTO) 71.8 % (40.0-77.0); PLATELET COUNT (AUTO) 314 K/uL (130-400); RED BLOOD CELL COUNT(AUTO) 2.78 MIL/uL (4.00-5.50); RED CELL DISTRIBUTION WIDTH 12.7 % (11.0-15.5); WHITE BLOOD COUNT (AUTO) 6.6 K/uL (4.8-10.8)
[2021-06-25 04:38] LABS: ALBUMIN 2.9 g/dL (3.5-5.0); BILIRUBIN,TOTAL 0.5 mg/dL (0.2-1.0); CREATININE 0.9 mg/dL (0.5-1.5); PHOSPHORUS 2.3 mg/dL (2.5-4.9); POTASSIUM 3.8 mmol/L (3.5-5.1); TOTAL PROTEIN, SERUM 6.2 g/dL (6.0-8.3)
[2021-06-25] MEDS: LEVOTHYROXINE 50 MCG TABLET PO SCH (06:33)
[2021-06-25] MEDS: TIMOLOL MALEATE 0.5% 5 ML BOTTLE OD SCH ×2 (08:29→20:24)
[2021-06-25] MEDS: BRIMONIDINE TARTRATE 0.2% 5 ML BOTTLE OD SCH ×2 (08:30→20:23)
[2021-06-25] MEDS: Vitamin B Complex/Vit C/Folic Acid PO SCH (08:30)
[2021-06-25] MEDS: RESTASIS OP SCH ×2 (08:30→20:38)
[2021-06-25] MEDS: HYDROXYUREA 500 MG CAP PO SCH (08:31)
[2021-06-25] MEDS: FAMOTIDINE 20MG VIAL IV SCH (08:31)
[2021-06-25] MEDS: THIAMINE HCL 100 MG TABLET PO SCH (08:31)
[2021-06-25] MEDS: ASCORBIC ACID 500 MG TAB PO SCH (08:32)
[2021-06-25] MEDS: ENOXAPARIN SODIUM 30 MG/0.3 ML SQ SCH (08:33)
[2021-06-25] MEDS: FOLIC ACID 1 MG TABLET PO SCH (08:33)
[2021-06-25] MEDS: CARVEDILOL 3.125 MG TABLET PO SCH ×2 (08:33→20:27)
[2021-06-25] MEDS: LEVETIRACETAM 500 MG in 0.9%NACL 100ML 100 ML IV SCH ×2 (08:34→23:44)
[2021-06-25] MEDS: CLOPIDOGREL 75MG TAB PO SCH (08:34)
[2021-06-25] MEDS: VITAMIN D3 PO SCH (12:00)
[2021-06-25] MEDS: ATORVASTATIN 40 MG TABLET PO SCH (20:25)
[2021-06-25] MEDS: LEVOFLOXACIN 500 MG/D5W 100 ML 100 ML IV SCH (20:29)
[2021-06-25] MEDS: POTASSIUM CHLORIDE 20 MEQ/100 ML BAG IV SCH (22:38)
[2021-06-26] VITALS (7 sets, daily range): BP systolic 128–160; BP diastolic 69–92
[2021-06-26] MEDS: LEVOTHYROXINE 50 MCG TABLET PO SCH (06:37)
[2021-06-26 06:43] LABS: BASOPHILS % (AUTO) 0.7 % (0.0-5.0); EOSINOPHILS % (AUTO) 3.6 % (0.0-8.0); HEMATOCRIT 31.4 % (36-48); LYMPHOCYTES % (AUTO) 14.5 % (21.0-51.0); MEAN CORPUSCULAR HEMOGLOBIN 37.1 pg (27.0-33.0); MEAN CORPUSCULAR HGB CONC 33.1 g/dL (32.0-36.0); MEAN CORPUSCULAR VOLUME 112.1 fL (79-99); MONOCYTES % (AUTO) 15.6 % (3.0-13.0); NEUTROPHILS % (AUTO) 65.1 % (40.0-77.0); PLATELET COUNT (AUTO) 297 K/uL (130-400); RED CELL DISTRIBUTION WIDTH 13.1 % (11.0-15.5); WHITE BLOOD COUNT (AUTO) 5.5 K/uL (4.8-10.8)
[2021-06-26 07:50] LABS: CREATININE 0.7 mg/dL (0.5-1.5)
[2021-06-26] MEDS: FOLIC ACID 1 MG TABLET PO SCH (08:33)
[2021-06-26] MEDS: FAMOTIDINE 20MG VIAL IV SCH (08:33)
[2021-06-26] MEDS: THIAMINE HCL 100 MG TABLET PO SCH (08:33)
[2021-06-26] MEDS: Vitamin B Complex/Vit C/Folic Acid PO SCH (08:33)
[2021-06-26] MEDS: RESTASIS OP SCH ×2 (08:34→21:00)
[2021-06-26] MEDS: ASCORBIC ACID 500 MG TAB PO SCH (08:34)
[2021-06-26] MEDS: CLOPIDOGREL 75MG TAB PO SCH (08:34)
[2021-06-26] MEDS: BRIMONIDINE TARTRATE 0.2% 5 ML BOTTLE OD SCH ×2 (08:34→21:00)
[2021-06-26] MEDS: TIMOLOL MALEATE 0.5% 5 ML BOTTLE OD SCH ×2 (08:34→21:00)
[2021-06-26] MEDS: HYDROXYUREA 500 MG CAP PO SCH (08:35)
[2021-06-26] MEDS: ENOXAPARIN SODIUM 30 MG/0.3 ML SQ SCH (08:36)
[2021-06-26] MEDS: CARVEDILOL 3.125 MG TABLET PO SCH ×2 (08:37→20:35)
[2021-06-26] MEDS ORDERED: SIMETHICONE 40 MG/0.6 ML ML PO PRN (10:30)
[2021-06-26] MEDS: VITAMIN D3 PO SCH (11:20)
[2021-06-26] MEDS: LEVETIRACETAM 500 MG in 0.9%NACL 100ML 100 ML IV SCH ×2 (11:23→23:06)
[2021-06-26] MEDS ORDERED: IOHEXOL 350 MG/ML 100ML INFUS..BTL IV ONE (15:07)
[2021-06-26] MEDS: LEVOFLOXACIN 500 MG/D5W 100 ML 100 ML IV SCH (20:35)
[2021-06-26] MEDS: ATORVASTATIN 40 MG TABLET PO SCH (20:35)
[2021-06-26] MEDS ORDERED: ACETAMINOPHEN 325 MG TAB PO PRN (21:00)
[2021-06-26] MEDS ORDERED: ACETAMINOPHEN 325 MG TAB ONE (21:03)
[2021-06-26] MEDS: POTASSIUM CHLORIDE 20 MEQ/100 ML BAG IV SCH (23:00)
[2021-06-27 03:56] VITALS: BP 143/80
[2021-06-27 06:06] LABS: BASOPHILS % (AUTO) 1.3 % (0.0-5.0); EOSINOPHILS % (AUTO) 3.5 % (0.0-8.0); HEMATOCRIT 30.1 % (36-48); LYMPHOCYTES % (AUTO) 16.4 % (21.0-51.0); MEAN CORPUSCULAR HEMOGLOBIN 37.2 pg (27.0-33.0); MEAN CORPUSCULAR HGB CONC 34.2 g/dL (32.0-36.0); MEAN CORPUSCULAR VOLUME 108.7 fL (79-99); MONOCYTES % (AUTO) 16.1 % (3.0-13.0); NEUTROPHILS % (AUTO) 61.8 % (40.0-77.0); PLATELET COUNT (AUTO) 352 K/uL (130-400); RED BLOOD CELL COUNT(AUTO) 2.77 MIL/uL (4.00-5.50); RED CELL DISTRIBUTION WIDTH 12.8 % (11.0-15.5); WHITE BLOOD COUNT (AUTO) 5.4 K/uL (4.8-10.8)
[2021-06-27 06:07] LABS: CREATININE 0.8 mg/dL (0.5-1.5); POTASSIUM 3.7 mmol/L (3.5-5.1)
[2021-06-27] MEDS: LEVOTHYROXINE 50 MCG TABLET PO SCH (06:27)
[2021-06-27 07:10] VITALS: BP 151/87
[2021-06-27] MEDS: ENOXAPARIN SODIUM 30 MG/0.3 ML SQ SCH (09:00)
[2021-06-27] MEDS: BRIMONIDINE TARTRATE 0.2% 5 ML BOTTLE OD SCH ×2 (09:00→21:00)
[2021-06-27] MEDS: CLOPIDOGREL 75MG TAB PO SCH (09:00)
[2021-06-27] MEDS: TIMOLOL MALEATE 0.5% 5 ML BOTTLE OD SCH ×2 (09:00→21:00)
[2021-06-27] MEDS: RESTASIS OP SCH ×2 (09:00→21:00)
[2021-06-27] MEDS: Vitamin B Complex/Vit C/Folic Acid PO SCH (10:17)
[2021-06-27] MEDS: FAMOTIDINE 20MG VIAL IV SCH (10:17)
[2021-06-27] MEDS: FOLIC ACID 1 MG TABLET PO SCH (10:18)
[2021-06-27] MEDS: ASCORBIC ACID 500 MG TAB PO SCH (10:18)
[2021-06-27] MEDS: THIAMINE HCL 100 MG TABLET PO SCH (10:18)
[2021-06-27] MEDS: HYDROXYUREA 500 MG CAP PO SCH (10:19)
[2021-06-27] MEDS: CARVEDILOL 3.125 MG TABLET PO SCH ×2 (10:22→21:06)
[2021-06-27] MEDS: LEVETIRACETAM 500 MG in 0.9%NACL 100ML 100 ML IV SCH ×2 (11:07→22:48)
[2021-06-27 11:10] VITALS: BP 148/77
[2021-06-27] MEDS: VITAMIN D3 PO SCH (12:00)
[2021-06-27 15:15] VITALS: BP 149/78
[2021-06-27] MEDS ORDERED: KETOROLAC 15MG/ML VIAL (15MG/ML) IM PRN (16:30)
[2021-06-27 20:00] VITALS: BP 125/49
[2021-06-27] MEDS: LEVOFLOXACIN 500 MG/D5W 100 ML 100 ML IV SCH (21:05)
[2021-06-27] MEDS: ATORVASTATIN 40 MG TABLET PO SCH (21:06)
[2021-06-27] MEDS: POTASSIUM CHLORIDE 20 MEQ/100 ML BAG IV SCH (22:47)
[2021-06-28] VITALS (17 sets, daily range): BP systolic 131–179; BP diastolic 60–105
[2021-06-28] MEDS: LEVOTHYROXINE 50 MCG TABLET PO SCH (05:36)
[2021-06-28] MEDS: CLOPIDOGREL 75MG TAB PO SCH (09:00)
[2021-06-28] MEDS: RESTASIS OP SCH (09:00)
[2021-06-28] MEDS: ASCORBIC ACID 500 MG TAB PO SCH (09:00)
[2021-06-28] MEDS: FOLIC ACID 1 MG TABLET PO SCH (09:00)
[2021-06-28] MEDS: Vitamin B Complex/Vit C/Folic Acid PO SCH (09:00)
[2021-06-28] MEDS: BRIMONIDINE TARTRATE 0.2% 5 ML BOTTLE OD SCH (09:00)
[2021-06-28] MEDS: HYDROXYUREA 500 MG CAP PO SCH (09:00)
[2021-06-28] MEDS: THIAMINE HCL 100 MG TABLET PO SCH (09:00)
[2021-06-28] MEDS: ENOXAPARIN SODIUM 30 MG/0.3 ML SQ SCH (09:00)
[2021-06-28] MEDS: TIMOLOL MALEATE 0.5% 5 ML BOTTLE OD SCH (09:00)
[2021-06-28] MEDS: CARVEDILOL 3.125 MG TABLET PO SCH (09:21)
[2021-06-28] MEDS: FAMOTIDINE 20MG VIAL IV SCH (09:22)
[2021-06-28] MEDS: LEVETIRACETAM 500 MG in 0.9%NACL 100ML 100 ML IV SCH (11:00)
[2021-06-28] MEDS: VITAMIN D3 PO SCH (12:00)
[2021-06-28] MEDS ORDERED: PROPOFOL 10 MG/ML 20ML VIAL IV ONE ×2 (12:11)
[2021-06-28] MEDS ORDERED: MAG/ALUM/SIMETH 30 ML UDCUP ONE (13:46)
[2021-06-28] MEDS ORDERED: MAG/ALUM/SIMETH 30 ML UDCUP PO PRN (14:00)
[2021-06-28] MEDS ORDERED: PANT20TA PO (14:13)
[2021-06-28] MEDS ORDERED: LEVE-43 PO (14:22)
== END 2021-06-28 18:10 | disposition home or self-care (01) | DRG 643 ==
LOC: EDH 21:42 → EDHIP 23:24 → 2DH 06-22 08:19 → 3CH 06-25 20:29
PROVIDERS: ADMIT Internal Medicine; ATTEND Internal Medicine
PROC: 0DB58ZX Excision of Esophagus, Via Natural or Artificial Opening Endoscopic, Diagnostic (ICD-10-PCS; principal; 2021-06-28)
PROC: 0DB68ZX Excision of Stomach, Via Natural or Artificial Opening Endoscopic, Diagnostic (ICD-10-PCS; 2021-06-28)
DX: E22.2 Syndrome of inappropriate secretion of antidiuretic hormone (principal); G93.41 Metabolic encephalopathy; N39.0 Urinary tract infection, site not specified; R56.9 Unspecified convulsions; E83.42 Hypomagnesemia; E87.6 Hypokalemia; I10 Essential (primary) hypertension; E87.8 Other disorders of electrolyte and fluid balance, not elsewhere classified; B96.20 Unspecified Escherichia coli [E. coli] as the cause of diseases classified elsewhere; D46.9 Myelodysplastic syndrome, unspecified; D69.6 Thrombocytopenia, unspecified; E03.9 Hypothyroidism, unspecified; E78.00 Pure hypercholesterolemia, unspecified; E78.5 Hyperlipidemia, unspecified; I16.0 Hypertensive urgency; I25.10 Atherosclerotic heart disease of native coronary artery without angina pectoris; K21.00 Gastro-esophageal reflux disease with esophagitis, without bleeding; K29.70 Gastritis, unspecified, without bleeding; K31.89 Other diseases of stomach and duodenum; K44.9 Diaphragmatic hernia without obstruction or gangrene; Z20.822 Contact with and (suspected) exposure to COVID-19; I25.2 Old myocardial infarction; Z79.899 Other long term (current) drug therapy; Z85.528 Personal history of other malignant neoplasm of kidney; Z95.5 Presence of coronary angioplasty implant and graft; Z88.0 Allergy status to penicillin; Z88.2 Allergy status to sulfonamides; Z88.7 Allergy status to serum and vaccine; Z90.710 Acquired absence of both cervix and uterus; Z90.49 Acquired absence of other specified parts of digestive tract; Z82.3 Family history of stroke; Z80.3 Family history of malignant neoplasm of breast; Z80.1 Family history of malignant neoplasm of trachea, bronchus and lung; Z82.49 Family history of ischemic heart disease and other diseases of the circulatory system; Z82.0 Family history of epilepsy and other diseases of the nervous system
CPT/HCPCS: 36415; 43239; 70450; 71045; 74018; 74174; 74176; 80048; 80051; 80053; 81001; 82533; 82550; 83605; 83690; 83735; 83880; 83930; 83935; 84100; 84132; 84295; 84300; 84443; 84484; 84540; 84550; 85025; 85610; 85730; 86850; 86900; 86901; 87040; 87077; 87088; 87186; 87635; 93005; 93975; 95819; 97039; A4606; G0378; J0360; J1650; J1885; J1953; J1956; J2060; J2405; J2597; J2704; J3480; J3490; J7030; J7070; Q9967

== ENCOUNTER → 2021-08-25 | Outpatient (CLI) | payer MEDICARE ==
[~2021-08-25] MED LIST changes: -AEC81 PO; -AMLO-258 PO; -ANAG.5 PO; +ASCO100031 PO; +ATOR40TA69 PO; -ATOR40TA71 PO; -BRIM5DRO OU; -CARB15DR OU; -CARV12.511 PO; +CARV3.12 PO; +CLOP75TA14 PO; -CLOP75TA32 PO; +COMB5OS OD; -CYCL30DR; +CYCL30DR OP; -ESZO1TAB13 PO; +ESZO2TAB31 PO; +HYDR500C2 PO; -HYPR10DR OU; -LATA2.5D14 OU; +LEVE-43 PO; +LEVO50CA4 PO; -LEVO50TA11 PO; +PANT20TA PO; +PSYL3.4P5 PO; +SERT-439 PO; +VITAD50000 PO; +VYZULTA
== END | disposition home or self-care (01) ==
LOC: SHCH 09:25
PROVIDERS: ATTEND Internal Medicine Cardiovascular Disease
DX: I08.3 Combined rheumatic disorders of mitral, aortic and tricuspid valves (principal); I27.20 Pulmonary hypertension, unspecified; I11.9 Hypertensive heart disease without heart failure; E78.5 Hyperlipidemia, unspecified
CPT/HCPCS: 93306; 93356

== ENCOUNTER → 2021-10-17 | Outpatient (CLI) | payer MEDICARE | END | disposition home or self-care (01) | LOC: RAH 14:37 | PROVIDERS: ATTEND Internal Medicine | DX: S32.9XXA Fracture of unspecified parts of lumbosacral spine and pelvis, initial encounter for closed fracture (principal); M19.071 Primary osteoarthritis, right ankle and foot; M77.31 Calcaneal spur, right foot; M85.88 Other specified disorders of bone density and structure, other site; M51.36 Other intervertebral disc degeneration, lumbar region; X58.XXXA Exposure to other specified factors, initial encounter; Y93.89 Activity, other specified; Y92.89 Other specified places as the place of occurrence of the external cause; Y99.8 Other external cause status | CPT/HCPCS: 72100; 73630 ==

== ENCOUNTER 2022-10-25 10:25 | Emergency (ER) | payer MEDICARE ==
[~2022-10-25] VITALS: Ht 162.6 cm; Wt 56.7 kg
[~2022-10-25 10:25] MED LIST changes: +CLOP-31 PO; -CLOP75TA14 PO
[2022-10-25 10:46] VITALS: BP 179/94
[2022-10-25 11:13] LABS: BASOPHILS % (AUTO) 0.7 % (0.0-5.0); EOSINOPHILS % (AUTO) 1.5 % (0.0-8.0); HEMATOCRIT 36.5 % (36-48); LYMPHOCYTES % (AUTO) 6.9 % (21.0-51.0); MEAN CORPUSCULAR HEMOGLOBIN 38.6 pg (27.0-33.0); MEAN CORPUSCULAR VOLUME 113.7 fL (79-99); MONOCYTES % (AUTO) 6.7 % (3.0-13.0); NEUTROPHILS % (AUTO) 83.6 % (40.0-77.0); PLATELET COUNT (AUTO) 317 K/uL (130-400); RED BLOOD CELL COUNT(AUTO) 3.21 MIL/uL (4.00-5.50); RED CELL DISTRIBUTION WIDTH 12.3 % (11.0-15.5); WHITE BLOOD COUNT (AUTO) 7.2 K/uL (4.8-10.8)
[2022-10-25 11:22] LABS: CREATININE 0.8 mg/dL (0.5-1.5); POTASSIUM 3.8 mmol/L (3.5-5.1)
[2022-10-25 11:26] LABS: ALBUMIN 3.6 g/dL (3.5-5.0); TOTAL PROTEIN, SERUM 7.4 g/dL (6.0-8.3)
[2022-10-25] MEDS ORDERED: ONDANSETRON 4MG INJ IVP ONE (11:30)
[2022-10-25] MEDS ORDERED: KETOROLAC 30MG VIAL (30MG/ML) IVP ONE (11:30)
== END 2022-10-25 14:09 | disposition home or self-care (01) ==
LOC: EDH 10:25
DX: K40.90 Unilateral inguinal hernia, without obstruction or gangrene, not specified as recurrent (principal); E03.9 Hypothyroidism, unspecified; E78.00 Pure hypercholesterolemia, unspecified; I10 Essential (primary) hypertension; Z88.0 Allergy status to penicillin; Z88.2 Allergy status to sulfonamides; Z95.5 Presence of coronary angioplasty implant and graft; Z98.890 Other specified postprocedural states; Z88.8 Allergy status to other drugs, medicaments and biological substances; Z79.899 Other long term (current) drug therapy
CPT/HCPCS: 99285; 96374; 71045; 96375; 84484; 80053; 83690; 85025; 36415; 76882; 93005; J2405; J1885

== ENCOUNTER → 2022-12-18 | Outpatient (CLI) | payer MEDICARE | END | disposition home or self-care (01) | LOC: RAH 11:00 | PROVIDERS: ATTEND Internal Medicine | DX: S32.019A Unspecified fracture of first lumbar vertebra, initial encounter for closed fracture (principal); M46.1 Sacroiliitis, not elsewhere classified; M47.816 Spondylosis without myelopathy or radiculopathy, lumbar region; M48.07 Spinal stenosis, lumbosacral region; X58.XXXA Exposure to other specified factors, initial encounter; Y93.89 Activity, other specified; Y92.89 Other specified places as the place of occurrence of the external cause; Y99.8 Other external cause status | CPT/HCPCS: 72100; 72202 ==

== ENCOUNTER → 2023-07-31 | Outpatient (CLI) | payer MEDICARE | END | disposition home or self-care (01) | LOC: RAH 16:11 | PROVIDERS: ATTEND Internal Medicine | DX: M47.816 Spondylosis without myelopathy or radiculopathy, lumbar region (principal); M54.50 Low back pain, unspecified; M48.061 Spinal stenosis, lumbar region without neurogenic claudication | CPT/HCPCS: 72100 ==

== ENCOUNTER → 2023-09-26 | Outpatient (CLI) | payer MEDICARE | END | disposition home or self-care (01) | LOC: RAH 13:45 | PROVIDERS: ATTEND Internal Medicine | DX: M43.8X4 Other specified deforming dorsopathies, thoracic region (principal); M48.061 Spinal stenosis, lumbar region without neurogenic claudication; M54.41 Lumbago with sciatica, right side | CPT/HCPCS: 72148 ==